=== PATIENT | female | born 1960 | race Caucasian/White ===

== ENCOUNTER 2023-06-28 06:20 | Day surgery (SDC) | payer OTHER ==
[2023-06-28] MEDS ORDERED: Xylocaine 1% Vial 30 ML PF IJ ONE (06:21)
[2023-06-28] MEDS ORDERED: Marcaine Mpf 0.5% Vial 30 Ml ONE (06:21)
[2023-06-28] MEDS: Lactated Ringers 1,000 ML IV SCH (06:35)
[2023-06-28] MEDS: CEFAZOLIN 2 GM-D5W BAG** 2 GM/50 ML ML IV SCH (06:35)
[2023-06-28] MEDS ORDERED: TORAdol 30 mg Injection ONE (06:56)
[2023-06-28] MEDS ORDERED: Decadron 4 MG INJ ONE (06:56)
[2023-06-28] MEDS ORDERED: Zofran 4 MG/2 ML VIAL ONE (06:56)
[2023-06-28] MEDS ORDERED: ROCURONIUM BROMIDE IV ONE (06:56)
[2023-06-28] MEDS ORDERED: Xylocaine-Mpf 2% 5 Ml Vial ONE (06:56)
[2023-06-28] MEDS ORDERED: DIPRIVAN 200 MG/20 ML IV ONE (06:56)
[2023-06-28] MEDS ORDERED: Versed 2 MG/2 ML Injection ONE (06:57)
[2023-06-28] MEDS ORDERED: SUBLIMAZE 100 MCG/2 ML ONE (06:59)
[2023-06-28] MEDS ORDERED: PHENYLEPHRINE HCL ONE (07:28)
[2023-06-28] MEDS ORDERED: PITRESSIN 20 UNITS ONE (07:39)
[2023-06-28] MEDS ORDERED: Lactated Ringers 1,000 ML IV ONE (08:10)
[2023-06-28] MEDS ORDERED: BRIDION 200MG/2ML IV ONE (08:59)
--- NOTE | 2023-06-28 09:26 | XRAY ---
Indication: Right 2nd/3rd hammertoe correction, sarah osteotomy, and plantar plate repair. Intraoperative fluoroscopy provided for 2 minute 40 seconds. Numerous digital spot images submitted for interpretation ultimately demonstrates fusion 2nd/3rd toes and 2nd/3rd metatarsal head sarah osteotomies all with intact hardware. Incidental manual manipulation 1st MTP. Correlate with intraoperative findings/report.
[2023-06-28] MEDS ORDERED: Hydromorphone 1 mg/ml Injection ONE (10:30)
[2023-06-28 10:58] VITALS: RESP 18; O2SAT 98
[2023-06-28 11:14] VITALS: BP 143/99; PULSE 87; TEMP 97.5
--- NOTE | 2023-06-28 11:30 | OP ---
SURGERY DATE/TIME: 06/28/2023 0711 PREOPERATIVE DIAGNOSES: 1) Right foot pain. 2) Hammer toes 2 through 5. 3) Metatarsal deformity metatarsals 2 and 3. 4) Complete tear of ligament plantar plate second and third metatarsophalangeal joints. 5) Hallux varus. POSTOPERATIVE DIAGNOSES: 1) Right foot pain. 2) Hammer toes 2 through 5. 3) Metatarsal deformity metatarsals 2 and 3. 4) Complete tear of ligament plantar plate second and third metatarsophalangeal joints. 5) Hallux varus. PROCEDURES: 1) Modified Chu osteotomy second and third metatarsals. 2) Hammer toe correction second and third digits. 3) Plantar plate repair with capsular tendinous balancing, second metatarsophalangeal joint plantar approach. 4) Hallux varus correction with internal brace and capsulotomy lateral collateral ligament first metatarsophalangeal joint. SURGEON: Oswaldo Avendaño DPM. ENTERPRISE ACCOUNT EXECUTIVE: None. ANESTHESIA: General plus a postoperative ankle block. HEMOSTASIS: Thigh tourniquet set to 300 mm of Mercury for 100 total tourniquet minutes. QUANTITATIVE BLOOD LOSS: Minimal. INJECTABLES: 30 cc of 1:1 mixture of 1% lidocaine plain and 0.5% bupivacaine plain injected in an ankle block-type fashion to the right ankle. INDICATION FOR SURGERY: Maria R is a very pleasant 62-year-old female well known to my service for pain secondary to hypermobility of the first ray and instability resulting in forefoot deviation with abduction. As a result, the patient has been having pain underneath the second metatarsophalangeal joint, which is consistent with a plantar plate as she has had some relief with change in shoe gear and metatarsal pads as well as injections. These are not lived and the patient would like to proceed with surgical intervention at this time. The patient understands all risks, complications and benefits of surgical intervention including but not limited to infection, hematoma, seroma, possibility of delayed bone healing, nonbone healing, failure of surgical intervention and possible need for further surgical intervention at a later date. Because this is a revision there is a higher risk for scar tissue and loss of vascularity to structures leading to possible amputation albeit very rare. From that standpoint, the patient is amenable to proceeding knowing these risks. The patient understands and wishes to proceed. Plenty of time was allowed for the patient to ask questions which were answered to her apparent satisfaction. It is at this time we decided to proceed. DESCRIPTION OF PROCEDURE AND FINDINGS: The patient is brought into the OR and placed on the OR table in the supine position. At this time, general anesthesia was administered until the patient was adequately sedated. A well-padded thigh tourniquet was applied to the patient's right thigh and the tourniquet was set to 300 mm of Mercury. At this time, the right lower extremity was prepped and draped in the typical sterile fashion and lowered onto the surgical field. At this time, attention was directed to the right foot where an Esmarch was utilized to exsanguinate the foot and leg. The tourniquet was inflated at this time. Attention was directed to the dorsal aspect of the second and third tarsometatarsal joints where similar procedures were carried out to both of these structures. At this time, a linear incision was made being careful not to damage any neurovascular structures. The extensor tendon was identified under blunt dissection and Z-lengthening osteotomy was performed. The tendon pins were retracted out of the way and gave access to the capsule of the second and third metatarsals where a linear incision was made across without performing J-strokes. From that standpoint, an 18 mm sagittal saw was utilized to perform a Chu osteotomy which was positioned perpendicular to the weight bearing surface. These were shifted in the medial position in order to get the toes to drift laterally. Capsule was tightened and loosened in order to balance the position of the toes into a normal and desirable location this was performed utilizing 4-0 Monocryl. From that standpoint, these were pinned and two - 14 cannulated partially threaded headed screws were then utilized to secure the metatarsals in their position. At this point, attention was directed to the hammer toes two and three where there was residual deformity which an 18 mm sagittal saw was utilized to resect out the proximal interphalangeal joint. The cadaver bones did appear to be well integrated and sclerosed within the bone. K-wire was retrograded out of the tip of the toe and then integrated down to the level of the proximal phalanx. At this time, respectively a 40 and a 34 mm variable pitch screw was introduced from distal to proximal gaining excellent apposition of the joint surfaces and excellent clinical position of the toes. Following this, the foot was loaded and stress testing was performed. A Samuel test was positive. The decision was made to proceed with a plantar plate repair from the plantar aspect. A curvilinear incision was made into the sulcus of the second metatarsophalangeal joint avoiding the weight bearing surface this was retracted utilizing own retractor that was displaced but not removed from the plantar aspect of the foot at this time. At this time, the flexor tendon was identified and retracted out of the way. Plantar plate was identified and there was a tear on the medial aspect of the plantar plate this was completed. A 1.45 JuggerKnot was then introduced into the neck of the metatarsal getting excellent enterprise integration developer on the cortex of the bone and this was used to repair the plantar plate in an adequate position. The toe was held plantar flexed and maintained that position following the plantar plate repair. Following this attention was directed to the first metatarsophalangeal joint where a significant amount of instability was seen with the medial and lateral collateral ligaments. There was some residual hallux varus so the decision was made to perform percutaneous repair of the capsule with internal brace. Following percutaneous capsulotomy, a 1.45 JuggerKnot was introduced into the metatarsal neck and then anchored utilizing a 16 mm PEEK anchor into the lateral base of the proximal phalanx this was then tensioned to the appropriate amount and deemed to be in an adequate position under adequate amount of tension. The foot was loaded and checked this was deemed to be excellent in reduction and repair. Instability was no longer present to the first metatarsophalangeal joint. Following this, copious amounts of sterile saline were utilized to flush the surgical site. 4-0 Monocryl was utilized to coapt the tendon edges under minimal tension. 4-0 Monocryl then was used again to coapt the subcu in buried interrupted-type fashion and then 4-0 Nylon was utilized to coapt the skin in simple interrupted buried-type fashion. A dressing consisting of Betadine, Adaptic, 4x4, Kerlix, ABD and MADDI were applied to the patients right lower extremity. The patient was then reversed from anesthesia and returned to the postoperative anesthesia care unit with vital signs stable and vascular status intact. The patient handled the anesthesia as well as the procedure without significant complication. Postoperative orders as indicated in the patient's discharge chart.
--- NOTE | 2023-06-28 12:47 | XRAY ---
Two minutes and 48 seconds of fluoroscopy was used in surgery for a right 2nd/3rd hammertoe correction, sarah osteotomy, and plantar plate repair.
== END 2023-06-28 11:23 | disposition home or self-care (01) ==
LOC: SDC 06:20
PROVIDERS: ATTEND Podiatrist Foot & Ankle Surgery
DX: M20.41 Other hammer toe(s) (acquired), right foot (principal); M79.671 Pain in right foot; M21.6X1 Other acquired deformities of right foot; M20.31 Hallux varus (acquired), right foot; S93.529A Sprain of metatarsophalangeal joint of unspecified toe(s), initial encounter
CPT/HCPCS: 28200; 28285; 28308; 28313; 73630; 76000; J0690; J1100; J1170; J1885; J2001; J2250; J2371; J2405; J2704; J3010